=== PATIENT | male | born 1995 | race Two or more races ===

== ENCOUNTER 2020-07-05 08:49 | Outpatient (REF) | payer SELFPAY | END 2020-07-05 08:50 | disposition home or self-care (01) | LOC: HO.SCI 08:49 | PROVIDERS: Visit Provider Nurse Practitioner Community Health | DX: Z13.89 Encounter for screening for other disorder (principal) ==

== ENCOUNTER → 2020-08-25 14:36 | Outpatient (REF) | payer MEDICAID, OTHER, SELFPAY ==
--- NOTE | 2020-08-25 14:46 | CA_ITS ---
Transthoracic Echocardiogram Patient (Last, First, Middle): Bhupendra Jeong, Gender: Male Date of : 1995 Age: 24 Procedure Date: 08/25/2020 Procedure Type: Transthoracic Echocardiogram Location: OP Height: 170.18 cm Weight: 81.99 kg BSA: 1.94 m2 Heart Rate: bpm BP: 110 / 70 mmHg Seed Trucker: [id number] Referring MD: Giovanny Sorensen PERSONNEL RECORDS CLERK Coyote Hunter: Tad Rothman MD Symptoms: ABN EKG Study Quality: Good ECG Rhythm: Sinus Conclusions: - Normal study Findings Left Ventricle Normal left ventricular size, thickness, and systolic function. The visually estimated ejection fraction is between 60-65%. Diastolic function is normal for age. Right Ventricle Normal right ventricular cavity size and systolic function. Atria Both atria are normal in size. There is no evidence of interatrial shunt. Aortic Valve Normal aortic valve structure and function. There is no aortic valve stenosis. There is no aortic valve regurgitation. Mitral Valve Normal mitral valve structure and function. There is trace mitral valve regurgitation. There is no mitral valve stenosis. Pulmonic Valve The pulmonic valve is normal. There is trace pulmonic valve regurgitation. Tricuspid Valve Normal tricuspid valve structure. There is trace tricuspid valve regurgitation. The right ventricular systolic pressure is normal. The right ventricular systolic pressure is 22 mmHg. Normal right atrial pressure. There is no evidence of pulmonary hypertension. Great Vessels All visible segments of the aorta are normal in size. The visualized portions of the pulmonary artery and branches are normal. Venous The inferior vena cava is normal in size and collapses greater than 50% with inspiration. Pericardium/Pleural There is no evidence of pericardial effusion. Prior Study Comparison No prior study available for comparison. Measurements 2D Linear Measurements IVSd: 0.77 0.6-0.9/0.6-1.0 cm LVIDd: 5.09 3.9-5.3/4.2-5.9 cm LVIDd Index: 2.62 2.4-3.2/2.2-3.1 cm/m2 LVIDs: 3.22 2.0-3.6 cm LVPWd: 0.82 0.7-1.1 cm Ao Root: 3.30 2.1-3.5 cm LA Diam: 2.90 2.7-3.8/3.0-4.0 cm LAIDs Index: 1.49 1.5-2.3 cm/m2 LV Mass: 171.88 67-162/88-224 g LV Mass Index: 88.60 43-95/49-115 g/m2 LVOT Diam: 2.40 3.0+(-)1.3 cm 2D Systolic Function EF 4C: 62.50 >55% EF 2C: 63.40 >55% EF BiP: 63.30 >55% Mitral Valve MV Pk E: 0.72 MV PK A: 0.45 MV Decel Time: 340.00 E/A: 1.60 E'Lateral: 12.80 E'Medial: 8.59 E/E' Med: 8.40 E/E' Lat: 5.60 PHT: 99.00 MVA PHT: 2.22 Decel [place]: 2.12 Aortic Valve AoV Pk Dirk: 1.33 AoV Mn Dirk: 1.03 AoV VTI: 0.30 AoV Pk Grad: 7.00 Aov Mn Grad: 5.00 LORI Cont.VTI: 2.65 LVOT LVOT Pk Dirk: 0.84 LVOT Mn Dirk: 0.52 LVOT VTI: 0.17 LVOT Pk Grad: 3.00 LVOT Mn Grad: 1.00 LVOT Diam: 2.40 LVOT Area: 4.52 Diastolic Function MV Pk E: 0.72 MV Pk A: 0.45 E/A: 1.60 E'Medial: 8.59 E/E' Med: 8.40 E' Laterial: 12.80 E/E' Lat: 5.60 Tricuspid Valve TR Pk Dirk: 2.17 TR Pk Grad: 19.00 RA Press: 3.00 RVSP: 22.00 Great Vessels Aorta Ao Root-2D: 3.30 2.0-3.7 cm Ao Asc: 2.90 2.1-3.4 cm Ao Arch: 2.40 Updated in Other Vendor System with Status of Final Tad Rothman MD electronically signed on 08/25/2020 5:19:00 PM with status of Final
== END ==
LOC: HO.CARD 14:36
PROVIDERS: Visit Provider Nurse Practitioner Community Health
DX: R94.31 Abnormal electrocardiogram [ECG] [EKG] (principal)
CPT/HCPCS: 93306